=== PATIENT | male | born 1950 | race Caucasian/White ===

== ENCOUNTER 2022-03-02 14:02 | Emergency (ER) | payer OTHER, MEDICARE, SELFPAY ==
[2022-03-02 14:05] VITALS: BP 181/97; PULSE 80; RESP 18; O2SAT 99; BMI 22.5
--- NOTE | 2022-03-02 14:36 | PC.NURSE ---
LACERATION TO SCALP CLEANSED WITH STERILE WATER AND HIBICLENS, PT TOLERATED WELL
--- NOTE | 2022-03-02 15:25 | PC.NURSE ---
Updated pt and on POC. Let them know MD was repairing another lac at this time and would be with them shortly. Offered pt some ibuprofen for headache, pt agreeable. He also advised his shoulder was getting sore, had pt lift his shirt and noted small red area to the left shoulder blade. Pt advised it was just a little sore and he was able to move it with no issue. Pt medicated per MAR. No other needs at this time
--- NOTE | 2022-03-02 15:42 | [facility].EDGENADL ---
ED Disposition Clinical Impression: Scalp laceration Qualifiers: Encounter type: initial encounter Qualified Code(s): S01.01XA - Laceration without foreign body of scalp, initial encounter Disposition: Home, Self-Care Condition on Discharge: Good Instructions: DI for Laceration Repair -- [place], DI for Closed Head Injury Additional Instructions: Additional instructions for SCALP LACERATION: Clean the wound daily with soap and water. You may shower and shampoo your hair. Avoid submerging the wound. No swimming.. Apply a thin film of antibiotic ointment such as neosporin, polysporin, or triple antibiotic daily after showering. Be careful when combing or brushing hair so that you so not snag the gregory with a comb or brush. See your primary care physician or return to the [facility] in 7 days for staple removal. The [facility] is open 9AM to 9 PM, 7 days a week. Return if any signs of infection including increasing pain, pus drainage, swelling, redness, red streaks, or fever. Additional instructions for HEAD INJURY: Return immediately if severe headache, vomiting, problems with vision or speech, numbness or weakness of the extremities, or severe neck pain. Referrals: Akbar Huitron MD [Primary Care Provider] - - Critical Care Critical Care Time: No Attestation: On 03/02/22, the high probability of a clinically significant, sudden or life threatening deterioration of the following system(s) required my full and direct attention, intervention and personal management. The time I documented below is in addition to time spent performing reported procedures but includes the following listed in this critical care notation. Medical Decision Making - [facility] Inquiry Pt receiving controlled substance: No Vital Signs: 03/02/22 14:05 Pulse Rate [Brachial] 80 Respiratory Rate 18 Blood Pressure [Right Arm] 181/97 H Blood Pressure Mean [Right Arm] 125 Blood Pressure Source [Right Arm] Automatic Cuff Blood Pressure Position [Right Arm] Sitting 02 Sat by Pulse Oximetry 99 Orders (Tests/Meds): ED MEDICATIONS Discontinued Medications Generic Name Dose Route Start Last Admin Trade Name Freq PRN Reason Stop Dose Admin Ibuprofen 600 mg 03/02/22 15:21 03/02/22 15:23 Ibuprofen 600 Mg Tablet PO 03/02/22 15:22 600 mg ONCE ONE Administration Lidocaine/Epinephrine 20 ml 03/02/22 15:53 03/02/22 15:58 Lidocaine 1% W/Epi 1:100,000 20ml Vial SQ 03/02/22 15:54 20 ml ONCE ONE Administration Tetanus/Diphtheria Toxoids 0.5 ml 03/02/22 14:19 03/02/22 14:23 Tetanus-Diphth Toxoid, Adult 0.5ml Syr IM 03/02/22 14:20 0.5 ml .ONCE ONE Administration - CT Data CT Scan: Head, C-Spine Time Received: 16:[address] Reviewed: Yes: I have viewed the radiologist's interpretation Findings Narrative: Procedure(s): CT cervical spine wo con Accession Number(s): [id number] cc: Akbar Huitron MD; Hermes Bradley MD; Rudy Prince MD~ FINAL REPORT CLINICAL HISTORY: head injury, pt stated that a tree limb fell on his head today causing a laceration, the laceration was stapled in the ER today. FINDINGS: Axial CT images of the cervical spine were obtained without contrast. Sagittal and coronal reformatted images were also obtained. This study was performed with techniques to keep radiation doses as low as reasonably achievable (ALARA). Individualized dose reduction techniques using automated exposure control or adjustment of mA and/or kV according to the patient's size were employed. There is no evidence of fracture or dislocation. The bony alignment is normal. There are moderate degenerative changes. There are disc osteophyte complexes at C5-6 and C6-7 with bilateral neural foraminal narrowing. There is mild central canal stenosis at C5-C6. No paraspinous soft tissue abnormality is seen. Limited images of the upper thorax are unremarkable. IMPRESSION:
--- NOTE | 2022-03-02 15:53 | CT_ITS ---
FINAL REPORT CLINICAL HISTORY: head injury, pt stated that a tree limb fell on his head today causing a laceration, the laceration was stapled in the ER today. FINDINGS: Axial images of the head were obtained without contrast. Coronal reformatted images were also obtained.This study was performed with techniques to keep radiation doses as low as reasonably achievable (ALARA). Individualized dose reduction techniques using automated exposure control or adjustment of mA and/or kV according to the patient's size were employed. There is no evidence of intracranial hemorrhage or mass. The ventricular size is within normal limits. There is no evidence of shift of the midline structures. No abnormal extra axial fluid collection is identified. No skull abnormality is seen on the bone window images. IMPRESSION: No acute intracranial abnormality. Reviewed, Interpreted and Dictated by Hermes Bradley III, MD Transcribed by Troy Larsen Authenticated and [facility]
--- NOTE | 2022-03-02 16:22 | CT_ITS ---
FINAL REPORT CLINICAL HISTORY: head injury, pt stated that a tree limb fell on his head today causing a laceration, the laceration was stapled in the ER today. FINDINGS: Axial CT images of the cervical spine were obtained without contrast. Sagittal and coronal reformatted images were also obtained. This study was performed with techniques to keep radiation doses as low as reasonably achievable (ALARA). Individualized dose reduction techniques using automated exposure control or adjustment of mA and/or kV according to the patient's size were employed. There is no evidence of fracture or dislocation. The bony alignment is normal. There are moderate degenerative changes. There are disc osteophyte complexes at C5-6 and C6-7 with bilateral neural foraminal narrowing. There is mild central canal stenosis at C5-C6. No paraspinous soft tissue abnormality is seen. Limited images of the upper thorax are unremarkable. IMPRESSION: No fracture or acute bony abnormality identified. Reviewed, Interpreted and Dictated by Hermes Bradley III, MD Transcribed by Troy Larsen Authenticated and [facility] [place] [place]
--- NOTE | 2022-03-02 16:24 | PC.NURSE ---
RADIOLOGY NOTIFIED OF ADDED C-SPINE ORDER
--- NOTE | 2022-03-02 16:32 | PC.NURSE ---
PT returned from CT
[2022-03-02 16:53] VITALS: BP 132/68; PULSE 70; RESP 16; TEMP 36.8; O2SAT 98
== END 2022-03-02 16:54 | disposition home or self-care (01) ==
PROVIDERS: Emergency Provider Emergency Medicine; PCP Internal Medicine Adolescent Medicine
DX: S01.01XA Laceration without foreign body of scalp, initial encounter (principal); Z23 Encounter for immunization; W20.8XXA Other cause of strike by thrown, projected or falling object, initial encounter
CPT/HCPCS: 12004; 70450; 72125; 90471; 90714; 99285

== ENCOUNTER 2022-03-09 10:26 | Emergency (ER) | payer OTHER, MEDICARE, SELFPAY ==
[2022-03-09 10:40] VITALS: BP 129/76; PULSE 76; RESP 19; TEMP 36.6; O2SAT 100; BMI 20.2
[2022-03-09 10:45] VITALS: BP 129/76; PULSE 76; RESP 19; TEMP 36.6; O2SAT 100
== END 2022-03-09 10:49 | disposition home or self-care (01) ==
PROVIDERS: Emergency Provider Nurse Practitioner; PCP Internal Medicine Adolescent Medicine
DX: Z48.02 Encounter for removal of sutures (principal)
CPT/HCPCS: 99211; G0463